=== PATIENT | male | born 1980 | race Caucasian/White ===

== ENCOUNTER 2021-11-15 20:35 | Emergency (ER) | payer OTHER ==
[2021-11-15 20:46] VITALS: RESP 18; TEMP 99.2
[2021-11-15] MEDS ORDERED: FAMOTIDINE 20 MG TAB PO STA (20:59)
[2021-11-15] MEDS ORDERED: predniSONE 50 MG TAB PO STA (20:59)
[2021-11-15] MEDS ORDERED: diphenhydrAMINE 50 MG/ML 1 ML VIAL IM STA (20:59)
--- NOTE | 2021-11-15 21:01 | ED ---
Skin/Abscess/FB HPI - General Chief complaint: Skin/Abscess/Foreign Body Stated complaint: Allergic reaction, Hives Time Seen by Provider: 11/15/21 20:51 Source: patient, RN notes reviewed Mode of arrival: ambulatory - History of Present Illness Initial comments: This is a pleasant 41-year-old male who presents to the emergency department complaining of urticaria which started last night. Patient has previously had a diagnosis of idiopathic urticaria, in fact, he has been evaluated by [facility] and had ALLERGY testing. Patient was unable to come up with a cau se. States this started last night and now his progress. Patient is getting urticaria on his extremities and his torso. Her itching. They're changing positions. No pustules. No vesicles. Patient has had no fever. No respiratory distress. No airway issues. No throat symptoms. No ear symptoms. No itchy eyes. No runny nose. No cough. Patient did take Benadryl earlier today. Patient denies any new medications. No known exposures. No new detergents. No new foods. Interestingly. Patient did move from the [facility] recently. No headache, no fever or chills, no changes in vision or hearing, no sore throat or difficulty with speech, no neck pain, no chest pain or shortness of breath, no abdominal pain, no nausea or vomiting, no changes in urination or bowel movements, no numbness or tingling, no extremity pain, Past medical, surgical, social, and family history reviewed. MD complaint: rash - Related Data Previous Rx's Medication Instructions Recorded Famotidine [Pepcid] 20 mg PO BID PRN #30 tablet 11/15/21 diphenhydrAMINE [Benadryl] 25 mg PO QID PRN #24 capsule 11/15/21 predniSONE 50 mg PO DAILY #5 tab 11/15/21 Allergies Allergy/AdvReac Type Severity Reaction Status Date / Time No Known Allergies Allergy Verified 11/15/21 20:44 Review of Systems ROS Statement: Those systems with pertinent positive or pertinent negative responses have been documented in the HPI. ROS Other: All systems not noted in ROS Statement are negative. Past Medical History Past Medical History: Asthma Additional Past Medical History / Comment(s): Hep C History of Any Multi-Drug Resistant Organisms: None Reported Past Surgical History: No Surgical Hx Reported Past Psychological History: Bipolar, PTSD Smoking Status: Current every day smoker Past Alcohol Use History: None Reported Past Drug Use History: None Reported General Exam - General Exam Comments Initial Comments: Patient does not appear to be ill or toxic. Vital signs reviewed. I did recheck the patient's heart rate. Heart rate by auscultation and radial pulses 84/m. No adventitious lung sounds. Cranial nerves II through XII grossly intact. Patient alert and oriented. General appearance: alert, in no apparent distress, in distress (Minimal) Head exam: Present: atraumatic, normocephalic, normal inspection Eye exam: Present: normal appearance, PERRL, EOMI. Absent: scleral icterus, conjunctival injection, periorbital swelling ENT exam: Present: normal exam, normal oropharynx, mucous membranes moist, TM's normal bilaterally, normal external ear exam. Absent: mucous membranes dry Neck exam: Present: normal inspection, full ROM. Absent: tenderness, meningismus, lymphadenopathy Respiratory exam: Present: normal lung sounds bilaterally. Absent: respiratory distress, wheezes, rales, rhonchi, stridor Cardiovascular Exam: Present: regular rate, normal rhythm, normal heart sounds. Absent: systolic murmur, diastolic murmur, rubs, gallop, clicks GI/Abdominal exam: Present: soft, normal bowel sounds. Absent: distended, tenderness, guarding, rebound, rigid Extremities exam: Present: normal inspection, full ROM, normal capillary refill. Absent: tenderness, pedal edema, joint swelling, calf tenderness Back exam: Present: normal inspection Neurological exam: Present: alert, oriented X3, CN II-XII intact Psychiatric exam: Present: normal affect, normal mood Skin exam: Present: warm, dry, intact, urticaria, other (Urticaria involving the proximal extremities and torso. No evidence of infectious process.). Absent: rash, cyanosis, diaphoretic, vesicles, petechiae, pallor, mottled, abrasion Course Vital Signs 11/15/21 11/15/21 20:40 21:15 Temperature 99.2 F Pulse Rate 114 H 99 Respiratory 18 18 Rate Blood Pressure 134/82 120/78 O2 Sat by Pulse 98 95 Oximetry Medical Decision Making - Medical Decision Making Patient presents with urticaria. No airway issues. No evidence of infectious process. No throat symptoms are upper airway symptoms. Started last night. Patient previously has had a diagnosis of idiopathic urticaria. We'll treat with antihistamines and corticosteroids. Patient was told to return to the ER for any signs or symptoms worsen. Told to return immediately if any other problems arise. All questions answered. Treatment plan discussed. Patient in agreement Every effort has been made to ensure accuracy of this dictation. However, due to the limitations of electronic medical records and dictation devices, errors in charting still occur. Bat Boy/Girl Dr. Lovelace Disposition Clinical Impression: Urticaria Disposition: HOME SELF-CARE Condition: Stable Instructions (If sedation given, give patient instructions): Urticaria (ED) Additional Instructions: Follow-up with your regular physician as directed. Return to the ER immediately if any symptoms worsen, new symptoms arise, or any other problems develop. Prescriptions: diphenhydrAMINE [Benadryl] 25 mg PO QID PRN #24 capsule PRN Reason: Itching Famotidine [Pepcid] 20 mg PO BID PRN #30 tablet PRN Reason: Itching predniSONE 50 mg PO DAILY #5 tab Is patient prescribed a controlled substance at d/c from ED?: No Referrals: Dallin Sanchez [STAFF PHYSICIAN] - 11/18/21 Time of Disposition: 21:01
[2021-11-15 21:16] VITALS: BP 120/78; PULSE 99
== END 2021-11-15 21:25 | disposition home or self-care (01) ==
LOC: EC 20:35
DX: L50.0 Allergic urticaria (principal); T78.40XA Allergy, unspecified, initial encounter; J45.909 Unspecified asthma, uncomplicated; F17.200 Nicotine dependence, unspecified, uncomplicated
CPT/HCPCS: 99282; 96372; J1200; J7512

== ENCOUNTER 2021-12-22 11:19 | Emergency (ER) | payer OTHER ==
[2021-12-22 11:27] VITALS: BP 119/62; PULSE 115; RESP 20; TEMP 98.2
[2021-12-22] MEDS ORDERED: methylPREDNISolone SOD SUCCI 125 MG/2 ML VIAL IM ONE (11:41)
[2021-12-22] MEDS ORDERED: FAMOTIDINE 20 MG TAB PO STA (11:41)
[2021-12-22] MEDS ORDERED: diphenhydrAMINE 50 MG/ML 1 ML VIAL IM STA (11:41)
--- NOTE | 2021-12-22 11:44 | ED ---
Skin/Abscess/FB HPI - General Chief complaint: Skin/Abscess/Foreign Body Stated complaint: hives Time Seen by Provider: 12/22/21 11:28 Source: patient, RN notes reviewed Mode of arrival: ambulatory Limitations: no limitations - History of Present Illness Initial comments: This is a 41-year-old male who presents to the emergency department for hives. Patient does have a diagnosis of idiopathic urticaria, and [facility] has not been able to determine a cause of these frequent breakouts. Symptoms are the same as they were 2 months ago when he was in the emergency department. They did resolve with the prescriptions he was given for prednisone, Benadryl, and Pepcid. These hives started last night, and he took one dose of Benadryl with no relief. Denies any new soaps or detergents. This is not the worst breakout he has ever had. He is requesting that he receive the first dose of steroids and Benadryl in the emergency department, as it treats his symptoms the fastest. Denies any difficulty breathing or chest pain. Denies any fevers, chills, sore throat, cough, dyspnea, chest pain, palpitations, abdominal pain, nausea, vomiting, diarrhea, back pain, or headaches. MD complaint: rash Onset/Timin -: days(s) Tetanus Up to Date: yes Location: generalized Treatments Prior to Arrival: Benadryl - Related Data Previous Rx's Medication Instructions Recorded Famotidine [Pepcid] 20 mg PO BID PRN #30 tablet 11/15/21 diphenhydrAMINE [Benadryl] 25 mg PO QID PRN #24 capsule 11/15/21 predniSONE 50 mg PO DAILY #5 tab 11/15/21 Famotidine [Pepcid] 20 mg PO BID 7 Days #14 tablet 12/22/21 diphenhydrAMINE [Benadryl] 25 mg PO QID PRN #20 capsule 12/22/21 predniSONE 50 mg PO Q24H 5 Days #5 tablet 12/22/21 Allergies Allergy/AdvReac Type Severity Reaction Status Date / Time No Known Allergies Allergy Verified 12/22/21 11:27 Review of Systems ROS Statement: Those systems with pertinent positive or pertinent negative responses have been documented in the HPI. ROS Other: All systems not noted in ROS Statement are negative. Past Medical History Past Medical History: Asthma Additional Past Medical History / Comment(s): Hep C History of Any Multi-Drug Resistant Organisms: None Reported Past Surgical History: No Surgical Hx Reported Past Psychological History: Bipolar, PTSD Smoking Status: Current every day smoker Past Alcohol Use History: None Reported Past Drug Use History: None Reported General Exam Limitations: no limitations General appearance: alert, in distress Head exam: Present: atraumatic, normocephalic, normal inspection Respiratory exam: Present: normal lung sounds bilaterally. Absent: respiratory distress, wheezes, rales, rhonchi, stridor Cardiovascular Exam: Present: normal rhythm, tachycardia, normal heart sounds. Absent: systolic murmur, diastolic murmur, rubs, gallop, clicks Neurological exam: Present: alert, oriented X3, CN II-XII intact Psychiatric exam: Present: normal affect, normal mood Skin exam: Present: other (Urticaria on the bilateral arms, legs, neck, and trunk. Positive dermatographism.) Course Vital Signs 12/22/21 11:25 Temperature 98.2 F Pulse Rate 115 H Respiratory 20 Rate Blood Pressure 119/62 O2 Sat by Pulse 96 Oximetry Medical Decision Making - Medical Decision Making This is a 41-year-old male who presents to the emergency department for urticaria. Solu-Medrol, Benadryl, and Pepcid were administered in the emergency department. He has no airway involvement or other findings to suggest an anaphylaxis. Prescriptions for prednisone, Benadryl, and Pepcid were provided. He'll follow up with his primary care provider to ensure resolution of the urticaria. Return precautions reviewed in depth, the patient is instructed to return to the emergency department with any new, worsening, or concerning symptoms. Patient verbalized understanding. This case was discussed in detail with the attending ED physician. Presentation, findings, and treatment plan discussed in detail as well. Disposition Clinical Impression: Urticaria Disposition: HOME SELF-CARE Instructions (If sedation given, give patient instructions): Urticaria (ED) Additional Instructions: Return to the emergency department with any new, worsening, or concerning symptoms. The prednisone daily for 5 days, take the famotidine twice daily for 7 days, and use the Benadryl up to every 6 hours as needed for the itching. Follow up with your primary care provider in 1-2 days. Prescriptions: diphenhydrAMINE [Benadryl] 25 mg PO QID PRN #20 capsule PRN Reason: Itching Famotidine [Pepcid] 20 mg PO BID 7 Days #14 tablet predniSONE 50 mg PO Q24H 5 Days #5 tablet Is patient prescribed a controlled substance at d/c from ED?: No Referrals: None,Stated [Primary Care Provider] - 1-2 days
== END 2021-12-22 12:23 | disposition home or self-care (01) ==
LOC: EC 11:19
DX: L50.9 Urticaria, unspecified (principal); J45.909 Unspecified asthma, uncomplicated; F17.200 Nicotine dependence, unspecified, uncomplicated; F31.9 Bipolar disorder, unspecified; F43.10 Post-traumatic stress disorder, unspecified; Z79.899 Other long term (current) drug therapy
CPT/HCPCS: 99283 ×2; 96372 ×3; J1200; J2930; 99282

== ENCOUNTER 2021-12-26 15:21 | Emergency (ER) | payer MEDICARE, OTHER ==
[2021-12-26 15:38] VITALS: TEMP 98.3
[2021-12-26] MEDS ORDERED: FAMOTIDINE 20 MG TAB PO STA (16:00)
[2021-12-26] MEDS ORDERED: methylPREDNISolone SOD SUCCI 125 MG/2 ML VIAL IM ONE (16:00)
[2021-12-26] MEDS ORDERED: diphenhydrAMINE 50 MG/ML 1 ML VIAL IM STA (16:00)
--- NOTE | 2021-12-26 16:12 | XR ---
EXAMINATION TYPE: XR chest 2V DATE OF EXAM: 12/26/2021 COMPARISON: None HISTORY: Cough and shortness of breath TECHNIQUE: Frontal and lateral views of the chest are obtained. FINDINGS: There is minimal interstitial scarring or atelectasis in the left lower lobe otherwise the lungs are clear. There is no pleural effusion or pneumothorax. The heart and pulmonary vasculature are normal. The osseous structures are intact IMPRESSION: No acute cardiopulmonary process.
--- NOTE | 2021-12-26 16:14 | ED ---
Allergic Reaction HPI - General Chief complaint: Allergic Reaction Stated complaint: Rash Time Seen by Provider: 12/26/21 15:55 Source: patient, family, RN notes reviewed Mode of arrival: ambulatory Limitations: no limitations - History of Present Illness Initial Comments: This is a 41 year old male who presents to the emergency department for hives. He was evaluated here on 12/22 for the same symptoms. Again, this patient does have chronic idiopathic urticaria which was diagnosed after extensive testing. He frequently acquires hives without any identifiable allergens. States that this completely resolved while taking the Prednisone, benadryl, and Pepcid. This morning, he woke up with hives again. Also reports a cough that has been present for the last week. States that when he gets sick, the hives are often worse. Denies any fevers, chills, sore throat, chest pain, palpitations, abdominal pain, nausea, vomiting, diarrhea, back pain, or headaches. MD Complaint: allergic reaction, hives Treatment Prior to Arrival: benadryl, steroids Previous Allergy History: prior ED visit(s) - Related Data Home Medications Medication Instructions Recorded Confirmed predniSONE 50 mg PO DAILY 12/26/21 12/26/21 Previous Rx's Medication Instructions Recorded Famotidine [Pepcid] 20 mg PO BID 7 Days #14 tablet 12/22/21 diphenhydrAMINE [Benadryl] 25 mg PO QID PRN #20 capsule 12/22/21 Amoxic-Pot Clav 875-125Mg 1 tab PO Q12HR 7 Days #14 tab 12/26/21 [Augmentin 875-125] Promethazine/Dextromethorphan 5 ml PO Q4-6H PRN #473 ml 12/26/21 [Promethazine-Dm Syrup] predniSONE 10 mg PO DIRECTED 15 Days #45 12/26/21 tab Allergies Allergy/AdvReac Type Severity Reaction Status Date / Time No Known Allergies Allergy Verified 12/26/21 17:15 Review of Systems ROS Statement: Those systems with pertinent positive or pertinent negative responses have been documented in the HPI. ROS Other: All systems not noted in ROS Statement are negative. Past Medical History Past Medical History: Asthma Additional Past Medical History / Comment(s): Hep C History of Any Multi-Drug Resistant Organisms: None Reported Past Surgical History: No Surgical Hx Reported Past Psychological History: Bipolar, PTSD Smoking Status: Current every day smoker Past Alcohol Use History: None Reported Past Drug Use History: None Reported General Exam Limitations: no limitations General appearance: alert, in no apparent distress Head exam: Present: atraumatic, normocephalic, normal inspection Respiratory exam: Present: wheezes Cardiovascular Exam: Present: regular rate, normal rhythm, normal heart sounds. Absent: systolic murmur, diastolic murmur, rubs, gallop, clicks Neurological exam: Present: alert, oriented X3, CN II-XII intact Psychiatric exam: Present: normal affect, normal mood Skin exam: Present: other (Urticaria on the bilateral upper and lower e xtremities, neck, and trunk. ) Course Vital Signs 12/26/21 12/26/21 15:35 17:37 Temperature 98.3 F Pulse Rate 93 78 Respiratory 22 20 Rate Blood Pressure 135/88 140/95 O2 Sat by Pulse 91 L 91 L Oximetry Medical Decision Making - Medical Decision Making This is a 41 year old male who presents to the emergency department for hives. Chest x-ray obtained, I did not identify any infiltrates or consolidations. He was given IM Solu-Medrol and Benadryl as well as a dose of Pepcid. COVID and influenza testing were negative. To avoid putting the patient on another five- day course of prednisone, 50 mg, will put him on a taper over 15 days. He will take the prednisone as follows: 5 tablets (50mg) for 3 days, 4 tablets (40mg) for 3 days, 3 tablets (30mg) for 3 days, 2 tablets (20mg) for 3 days, and then 1 tablet (10mg) for 3 days. Patient verbalized understanding in terms of the instructions. Also advised that he continue taking the Pepcid and Benadryl. Given that his cough has been present for at least one week now, will put him on a course of Augmentin due to a possible bacterial component. Augmentin prescribed to be taken for 7 days. Starter pack provided in the emergency department so that he may take his first dose tonight. Prescription for promethazine DM cough syrup provided. Advised he take his first dose at night until he knows how it affects him, as it may be sedating. Also discussed that the cough syrup does contain an antihistamine, and if he were to take this with the Benadryl, it can exacerbate the effects of sedation and dryness. The patient being sick is also likely contributing to the rebound of the urticaria and difficulty in his body fighting the reaction. He will follow up with his primary care provider to ensure that the coughing and urticaria both completely resolve. Patient's oxygen saturation did hover around 91%. He did not feel like he had difficulty breathing and was in no obvious respiratory distress. Advised the patient that it would be preferable to have him wait until his oxygen saturation improves, however the patient declined and requested discharge home. He was given very strict return parameters in that if he does have difficulty breathing he should return immediately. He was warned of the risks sh ould he have any respiratory compromise including , and the patient expressed understanding and is willing to accept these risks. Return precautions reviewed in depth, the patient is instructed to return to the emergency department with any new, worsening, or concerning symptoms. Patient verbalized understanding. This case was discussed in detail with the attending ED physician. Presentation, findings, and treatment plan discussed in detail as well. - Lab Data Lab Results 12/26/21 12/26/21 Range/Units 16:56 16:56 Coronavirus (PCR) Not Detected (Not Detectd) Influenza Type A RNA Not Detected (Not Detectd) Influenza Type B (PCR) Not Detected (Not Detectd) - Radiology Data Radiology results: report reviewed, image reviewed Disposition Clinical Impression: Urticaria, Bronchitis Disposition: HOME SELF-CARE Instructions (If sedation given, give patient instructions): Urticaria (ED), Acute Bronchitis (ED) Additional Instructions: Return to the emergency department with any new, worsening, or concerning symptoms. Follow up with your primary care provider in 1-2 days. Take the predn isone as follows: Take 5 tablets (50mg) for 3 days, 4 tablets (40mg) for 3 days, 3 tablets (30mg) for 3 days, 2 tablets (20mg) for 3 days, and then 1 tablet (10mg) for 3 days. Make sure that you're continuing to take the Benadryl and Pepcid. Take the antibiotic twice daily for 7 days. You were given a starter pack here so that you may take your first dose tonight. The cough syrup can be used every 4-6 hours as needed. Take your first dose at night until you know how it affects you, as it may be sedating. The cough syrup does contain an antihistamine, and if you are to take this with Benadryl, it may exacerbate the effects, such as drowsiness and dryness. Prescriptions: Amoxic-Pot Clav 875-125Mg [Augmentin 875-125] 1 tab PO Q12HR 7 Days #14 tab predniSONE 10 mg PO DIRECTED 15 Days #45 tab Promethazine/Dextromethorphan [Promethazine-Dm Syrup] 5 ml PO Q4-6H PRN #473 ml PRN Reason: Cough Is patient prescribed a controlled substance at d/c from ED?: No Referrals: None,Stated [Primary Care Provider] - 1-2 days
[2021-12-26] MEDS ORDERED: AMOXIC-POT CLAV 875MG STARTER PACK 2 TAB BTL PO STA (17:32)
[2021-12-26 17:37] VITALS: BP 140/95; PULSE 78; RESP 20
[2021-12-26] MEDS ORDERED: guaiFENesin 600 MG TABLET.ER PO ONE (18:30)
== END 2021-12-26 19:07 | disposition home or self-care (01) ==
LOC: EC 15:21
DX: L50.9 Urticaria, unspecified (principal); J40 Bronchitis, not specified as acute or chronic; F31.9 Bipolar disorder, unspecified; F17.200 Nicotine dependence, unspecified, uncomplicated; Z79.899 Other long term (current) drug therapy; Z20.822 Contact with and (suspected) exposure to COVID-19
CPT/HCPCS: 87502; 87635; 71046; 99283; 96372 ×2; J1200; J2930

== ENCOUNTER 2022-01-22 15:16 | Emergency (ER) | payer MEDICARE ==
[2022-01-22 15:20] VITALS: TEMP 97.6
[2022-01-22] MEDS ORDERED: methylPREDNISolone SOD SUCCI 125 MG/2 ML VIAL IM ONE (16:11)
[2022-01-22] MEDS ORDERED: FAMOTIDINE 20 MG TAB PO STA (16:11)
[2022-01-22] MEDS ORDERED: diphenhydrAMINE 50 MG/ML 1 ML VIAL IM STA (16:11)
--- NOTE | 2022-01-22 16:23 | ED ---
General Adult HPI - General Chief complaint: Skin/Abscess/Foreign Body Stated complaint: Hives Time Seen by Provider: 01/22/22 15:41 Source: patient, RN notes reviewed, old records reviewed Mode of arrival: ambulatory Limitations: no limitations - History of Present Illness Initial comments: Patient is a 41-year-old male with past medical history remarkable for recurrent urticaria, hepatitis C presents emergency Department complaining of another flare of his urticaria. States he gets this multiple times year for many years. Has received thorough workup at [facility] with no known cause. Was seen here last month for similar complaints. Unknown etiology. States usually steroids, famotidine, Benadryl improvement. Presents for treatment. States he noticed it this morning and it was typical, located over his shoulders, upper back, upper chest. Denies any shortness of breath, difficulty in swallowing. Denies any abdominal pain, nausea, vomiting. Has no other acute symptoms at this time. States it is itchy. It is not painful. No new medications or exposures. No known ALLERGIES. Presents for further evaluation at this time. - Related Data Home Medications Medication Instructions Recorded Confirmed predniSONE 50 mg PO DAILY 12/26/21 12/26/21 Previous Rx's Medication Instructions Recorded Famotidine [Pepcid] 20 mg PO BID 7 Days #14 tablet 12/22/21 diphenhydrAMINE [Benadryl] 25 mg PO QID PRN #20 capsule 12/22/21 Amoxic-Pot Clav 875-125Mg 1 tab PO Q12HR 7 Days #14 tab 12/26/21 [Augmentin 875-125] Promethazine/Dextromethorphan 5 ml PO Q4-6H PRN #473 ml 12/26/21 [Promethazine-Dm Syrup] predniSONE 10 mg PO DIRECTED 15 Days #45 12/26/21 tab Famotidine [Pepcid] 20 mg PO BID 7 Days #14 tablet 01/22/22 diphenhydrAMINE HCL [Benadryl 25 mg PO BID PRN 7 Days #14 tab 01/22/22 Allergy] predniSONE 10 mg PO DIRECTED #49 tab 01/22/22 Allergies Allergy/AdvReac Type Severity Reaction Status Date / Time No Known Allergies Allergy Verified 01/22/22 15:20 Review of Systems ROS Statement: Those systems with pertinent positive or pertinent negative responses have been documented in the HPI. Review of Systems: CONST: Denies fever EYES: Denies blurry vision ENT: Denies nasal congestion C/V: Denies Chest pain RESP: Denies shortness of breath GI: Denies abdominal pain : Denies dysuria SKIN: Endorses urticaria MSK: Denies joint pain. NEURO: Denies headache ROS Other: All systems not noted in ROS Statement are negative. Past Medical History Past Medical History: Asthma Additional Past Medical History / Comment(s): Hep C History of Any Multi-Drug Resistant Organisms: None Reported Past Surgical History: No Surgical Hx Reported Past Psychological History: Bipolar, PTSD Smoking Status: Current every day smoker Past Alcohol Use History: None Reported Past Drug Use History: None Reported General Exam - General Exam Comments Initial Comments: General: Appears in no acute distress. HEAD: Normal with no signs of head trauma. EYES: EOMI ENT: Hearing grossly intact, normal oropharynx. No stridor RESPIRATORY: Clear breath sounds bilaterally. No wheezes, rales, or rhonchi. No respiratory distress. No hypoxia. C/V: Regular rate and rhythm. Peripheral pulses 2+ intact throughout. ABD: Abd is soft, nontender, nondistended EXT: Normal range of motion, no obvious deformity SKIN: Urticarial rash located over the upper chest, shoulders, back. NEURO: Alert and oriented 4. Limitations: no limitations Course Vital Signs 01/22/22 15:18 Temperature 97.6 F Pulse Rate 92 Respiratory 20 Rate Blood Pressure 119/80 O2 Sat by Pulse 96 Oximetry Medical Decision Making - Medical Decision Making Based on the patient's presentation and physical exam, I'm concerned for his typical urticaria of unknown etiology. He has no new symptoms. Patient states this is typical for him and he is even able to tell me what cures it, including a steroid burst, Benadryl, famotidine. He'll be given IM Solu-Medrol, IM Benadryl, as well as by mouth famotidine here in the department as well as be prescribed prednisone taper, famotidine, Benadryl. He was in agreement this plan. Vital signs within acceptable limits. His no signs of anaphylaxis at this time. Strict return precautions were discussed. I discussed with him that he needs to establish primary care follow-up as well as see a specialist. He was in agreement this plan. I will provide the patient with a prescription for famotidine, prednisone, Benadryl. I instructed the patient to follow up with their PCP in the next 1-3 days. I provided contact information for follow up with PCP. I explained that the patient should return to the emergency department if they experience any worsening symptoms. Strict return precautions were discussed with the patient. The patient expressed understanding of these instructions. I answered all questions that the patient had. The patient was discharged home in good condition with their prescriptions and follow up information. Disposition Clinical Impression: Urticaria Disposition: HOME SELF-CARE Condition: Good Instructions (If sedation given, give patient instructions): Urticaria (ED) Prescriptions: diphenhydrAMINE HCL [Benadryl Allergy] 25 mg PO BID PRN 7 Days #14 tab PRN Reason: Allergic Reaction Famotidine [Pepcid] 20 mg PO BID 7 Days #14 tablet predniSONE 10 mg PO DIRECTED #49 tab Is patient prescribed a controlled substance at d/c from ED?: No Referrals: None,Stated [Primary Care Provider] - 1-2 days Dilma Mulligan MD [REFERRING] - 1-2 days Time of Disposition: 16:15
[2022-01-22 16:49] VITALS: BP 120/78; PULSE 88; RESP 16
== END 2022-01-22 16:49 | disposition home or self-care (01) ==
LOC: EC 15:16
DX: L50.9 Urticaria, unspecified (principal); J45.909 Unspecified asthma, uncomplicated; F31.9 Bipolar disorder, unspecified; F17.200 Nicotine dependence, unspecified, uncomplicated
CPT/HCPCS: 99283; 96372 ×2; J1200; J2930

== ENCOUNTER 2022-03-20 18:39 | Emergency (ER) | payer OTHER ==
[2022-03-20 18:48] VITALS: BP 126/80; PULSE 95; RESP 18; TEMP 98.1
[2022-03-20] MEDS ORDERED: diphenhydrAMINE 50 MG/ML 1 ML VIAL IM STA (19:32)
[2022-03-20] MEDS ORDERED: methylPREDNISolone SOD SUCCI 125 MG/2 ML VIAL IM ONE (19:32)
--- NOTE | 2022-03-20 19:43 | ED ---
Skin/Abscess/FB HPI - General Chief complaint: Skin/Abscess/Foreign Body Stated complaint: hives Time Seen by Provider: 03/20/22 19:20 Source: patient, RN notes reviewed, old records reviewed Limitations: no limitations - History of Present Illness Initial comments: 41-year-old well-appearing male presents to the emergency room with recurrent hives on bilateral forearms and lower abdomen that started again today. has been seen multiple times for this in the past. He has had follow-up with blood testing and ALLERGY testing with no known cause. usually gets a shot of Solu-Medrol and Benadryl and steroid prescription. Does not know the trigger. Denies any shortness of breath or chest pain. No tongue swelling. No nausea vomiting diarrhea. MD complaint: rash (Urticaria bilateral forearms today) Location: [facility] Severity scale (1-10): 0 Consistency: constant Improves with: none Associated symptoms: denies other symptoms Treatments Prior to Arrival: none - Related Data Home Medications Medication Instructions Recorded Confirmed Buprenorphine/Naloxone 8Mg/2Mg 1 film SL BID 03/20/22 03/20/22 [Suboxone 8-2Mg Film] Previous Rx's Medication Instructions Recorded diphenhydrAMINE [Benadryl] 25 mg PO QID PRN #20 capsule 12/22/21 predniSONE 10 mg PO DIRECTED #49 tab 03/20/22 Allergies Allergy/AdvReac Type Severity Reaction Status Date / Time No Known Allergies Allergy Verified 03/20/22 19:43 Review of Systems ROS Statement: Those systems with pertinent positive or pertinent negative responses have been documented in the HPI. ROS Other: All systems not noted in ROS Statement are negative. Past Medical History Past Medical History: Asthma Additional Past Medical History / Comment(s): Hep C History of Any Multi-Drug Resistant Organisms: None Reported Past Surgical History: No Surgical Hx Reported Past Psychological History: Bipolar, PTSD Smoking Status: Current every day smoker Past Alcohol Use History: None Reported Past Drug Use History: None Reported General Exam Limitations: no limitations General appearance: alert, in no apparent distress Head exam: Present: atraumatic Eye exam: Present: normal appearance. Absent: scleral icterus, conjunctival injection, periorbital swelling ENT exam: Present: normal exam, mucous membranes moist Neck exam: Present: full ROM. Absent: tenderness, meningismus, lymphadenopathy Respiratory exam: Present: normal lung sounds bilaterally. Absent: respiratory distress, accessory muscle use Cardiovascular Exam: Present: regular rate GI/Abdominal exam: Present: soft. Absent: distended, tenderness, rigid Extremities exam: Present: normal capillary refill. Absent: pedal edema Back exam: Present: normal inspection, full ROM. Absent: tenderness, CVA tenderness (R), CVA tenderness (L), rash noted Neurological exam: Present: alert, oriented X3, normal gait Psychiatric exam: Present: normal affect, normal mood Skin exam: Present: warm, dry, normal color, urticaria (Bilateral forearms, bilateral groin) Course Vital Signs 03/20/22 18:46 Temperature 98.1 F Pulse Rate 95 Respiratory 18 Rate Blood Pressure 126/80 O2 Sat by Pulse 97 Oximetry Medical Decision Making - Medical Decision Making Patient has been seen multiple times and had outpatient ALLERGY testing with no definitive cause for his urticaria. States Solu-Medrol and Benadryl provides relief along with a prescription for a steroid taper. Patient denies any shortness of breath, no nausea vomiting difficulty breathing or tongue swelling. He'll be prescribed prednisone taper and directed to follow up with his primary care doctor. He is agreeable to this plan of care. Lung sounds clear auscultation and vital signs stable. Case discussed with Dr. Perez Was pt. sent in by a medical professional or institution? @ -no Did you speak to anyone other than the patient for history? @ -no Did you review nursing and triage notes? @ -yes i agree Were old charts reviewed? @ -yes previous ER visits and medications Differential Diagnosis? @ -ALLERGIC reaction, anaphylaxis, angioedema, adverse drug reaction What testing was considered but not performed? (CT, X-rays, U/S, labs)? Why? @ none What meds were considered but not given? Why? @ -Epinephrine was considered however this is not an anaphylactic reaction, is a localized urticaria Did you discuss the management of the patient with other professionals? @ -no Did you reconcile home meds? @ -none Was smoking cessation discussed for >3mins.? @ -no Was critical care preformed (if so, how long)? @ -no Were there social determinants of health that impacted care today? How? (Homelessness, low income, unemployed, alcoholism, drug addiction, transportation, low edu. Level, literacy, decrease access to med. care, residential, rehab)? @ -none Was there de-escalation of care discussed even if they declined? (Discuss DNR or withdrawal of care, Hospice)? @ -no What co-morbidities impacted this encounter? (DM, HTN, Smoking, COPD, CAD, Cancer, CVA, Hep., AIDS, mental health diagnosis, sleep apnea, morbid obesity)? @ -Asthma Was patient admitted / discharged? @ -discharged Undiagnosed new problem with uncertain prognosis? @ -[none] Drug Therapy requiring intensive monitoring for toxicity (Heparin, Nitro, Insulin, Cardizem)? @ -no Were any procedures done? @ -no Diagnosis/symptom? @ -Urticaria Acute, or Chronic, or Acute on Chronic? @ -acute on chronic Uncomplicated (without systemic symptoms) or Complicated (systemic symptoms)? @ -Uncomplicated Side effects of treatment? @ -[none] Exacerbation, Progression, or Severe Exacerbation] @ -[no] Poses a threat to life or bodily function? @ -[no] Disposition Clinical Impression: Urticaria Disposition: HOME SELF-CARE Condition: Good Instructions (If sedation given, give patient instructions): Urticaria (ED) Additional Instructions: Take prednisone as prescribed. Follow-up with your primary care doctor. Return to the emergency room with any new or concerning symptoms Prescriptions: predniSONE 10 mg PO DIRECTED #49 tab Is patient prescribed a controlled substance at d/c from ED?: No Referrals: None,Stated [Primary Care Provider] - 1-2 days Time of Disposition: 19:40
== END 2022-03-20 19:54 | disposition home or self-care (01) ==
LOC: EC 18:39
DX: L50.9 Urticaria, unspecified (principal); J45.909 Unspecified asthma, uncomplicated; F31.9 Bipolar disorder, unspecified; F17.200 Nicotine dependence, unspecified, uncomplicated
CPT/HCPCS: 99283; 96372 ×2; J1200; J2930

== ENCOUNTER 2022-07-10 00:26 | Emergency (ER) | payer OTHER ==
[2022-07-10 00:36] VITALS: RESP 18; TEMP 98.5
[2022-07-10] MEDS ORDERED: methylPREDNISolone SOD SUCCI 125 MG/2 ML VIAL IV STA (01:04)
[2022-07-10] MEDS ORDERED: diphenhydrAMINE 50 MG CAP PO STA (01:04)
--- NOTE | 2022-07-10 01:05 | ED ---
General Adult HPI - General Chief complaint: Allergic Reaction Stated complaint: Hives, Allergic Reaction Time Seen by Provider: 07/10/22 00:57 Source: patient, RN notes reviewed Mode of arrival: ambulatory Limitations: no limitations - History of Present Illness Initial comments: 42-year-old male with a past medical history significant for hepatitis C presents to the emergency department with a chief complaint of ALLERGIC reaction. Patient reports generalized. That started at his left wrist and numbness all over his bilateral arms and torso that started at approximately 09 100 this morning. He denies any known new laundry soaps, detergents. He reports that this happens once or twice a year. She is unsure from what he is ALLERGIC to. Patient denies any fever, chills, cough, shortness of breath, dyspnea, - Related Data Home Medications Medication Instructions Recorded Confirmed Buprenorphine/Naloxone 8Mg/2Mg 1 film SL BID 03/20/22 03/20/22 [Suboxone 8-2Mg Film] Previous Rx's Medication Instructions Recorded diphenhydrAMINE [Benadryl] 25 mg PO QID PRN #20 capsule 12/22/21 predniSONE 10 mg PO DIRECTED #49 tab 03/20/22 diphenhydrAMINE [Benadryl] 50 mg PO QID PRN #20 capsule 07/10/22 predniSONE 50 mg PO DAILY #5 tab 07/10/22 Allergies Allergy/AdvReac Type Severity Reaction Status Date / Time No Known Allergies Allergy Verified 07/10/22 00:33 Review of Systems ROS Statement: Those systems with pertinent positive or pertinent negative responses have been documented in the HPI. ROS Other: All systems not noted in ROS Statement are negative. Past Medical History Past Medical History: Asthma Additional Past Medical History / Comment(s): Hep C History of Any Multi-Drug Resistant Organisms: None Reported Past Surgical History: No Surgical Hx Reported Past Psychological History: Bipolar, PTSD Smoking Status: Current every day smoker Past Alcohol Use History: None Reported Past Drug Use History: None Reported General Exam - General Exam Comments Initial Comments: General: Alert, in no acute distress Head: atraumatic normocephalic. Eyes PERRL, EOMI intact, mucous membranes moist Respiratory: Lungs clear to auscultation bilaterally Cardiovascular: Heart rate regular rate and rhythm Abdominal: Soft without guarding or rebound Extremities: Normal inspection with full range of motion and normal capillary refill Neuroogic: alert and oriented 3, CN II-XII intact, able to ambulate with steady gait Skin: warm dry and intact with normal color, diffuse hives to upper extremities generalized hive all of her upper body and bilateral extremity Limitations: no limitations General appearance: alert, in no apparent distress Head exam: Present: atraumatic, normocephalic, normal inspection Eye exam: Present: normal appearance, PERRL, EOMI. Absent: scleral icterus, conjunctival injection, periorbital swelling ENT exam: Present: normal exam, mucous membranes moist Neck exam: Present: normal inspection. Absent: tenderness, meningismus, lymphadenopathy Respiratory exam: Present: normal lung sounds bilaterally. Absent: respiratory distress, wheezes, rales, rhonchi, stridor Cardiovascular Exam: Present: regular rate, normal rhythm, normal heart sounds. Absent: systolic murmur, diastolic murmur, rubs, gallop, clicks GI/Abdominal exam: Present: soft, normal bowel sounds. Absent: distended, tenderness, guarding, rebound, rigid Extremities exam: Present: normal inspection, full ROM, normal capillary refill. Absent: tenderness, pedal edema, joint swelling, calf tenderness Back exam: Present: normal inspection Neurological exam: Present: alert, oriented X3, CN II-XII intact Psychiatric exam: Present: normal affect, normal mood Skin exam: Present: warm, dry, intact, normal color. Absent: rash Course Vital Signs 07/10/22 07/10/22 00:34 02:28 Temperature 98.5 F Pulse Rate 123 H 112 H Respiratory 18 18 Rate Blood Pressure 111/75 110/75 O2 Sat by Pulse 95 93 L Oximetry Medical Decision Making - Medical Decision Making Was pt. sent in by a medical professional or institution (, PA, CABLE TELEVISION INSTALLER, urgent care, hospital, or long term...) When possible be specific @ -[No] Did you speak to anyone other than the patient for history (EMS, parent, family, police, friend...)? What history was obtained from this source @ -[No] Did you review nursing and triage notes (agree or disagree)? Why? @ -[I reviewed and agree with nursing and triage notes] Were old charts reviewed (outside hosp., previous admission, EMS record, old EKG, old radiological studies, urgent care reports/EKG's, long term records)? Report findings @ -[No old charts were reviewed] Differential Diagnosis (chest pain, altered mental status, abdominal pain women, abdominal pain men, vaginal bleeding, weakness, fever, dyspnea, syncope, headache, dizziness, GI bleed, back pain, seizure, CVA, palpatations, mental health, musculoskeletal)? @ -[not applicable] EKG interpreted by me (3pts min.). @ -[As above] X-rays interpreted by me (1pt min.). @ -[None done] CT interpreted by me (1pt min.). @ -[None done] U/S interpreted by me (1pt. min.). @ -[None done] What testing was considered but not performed or refused? (CT, X-rays, U/S, labs)? Why? @ -[None] What meds were considered but not given or refused? Why? @ -[None] Did you discuss the management of the patient with other professionals (professionals i.e. , PA, CABLE TELEVISION INSTALLER, lab, RT, psych nurse, social problems specialist, blast setter, teacher, police patrol officer, case management assistant)? Give summary @ -[No] Was smoking cessation discussed for >3mins.? @ -[No] Was critical care preformed (if so, how long)? @ -[No] Were there social determinants of health that impacted care today? How? (Home lessness, low income, unemployed, alcoholism, drug addiction, transportation, low edu. Level, literacy, decrease access to med. care, senior care, rehab)? @ -[No] Was there de-escalation of care discussed even if they declined (Discuss DNR or withdrawal of care, Hospice)? DNR status @ -[No] What co-morbidities impacted this encounter? (DM, HTN, Smoking, COPD, CAD, Cancer, CVA, ARF, Chemo, Hep., AIDS, mental health diagnosis, sleep apnea, morbid obesity)? @ -[None] Was patient admitted / discharged? Hospital course, mention meds given and route, prescriptions, significant lab abnormalities, going to OR and other pertinent info. @ -Discharged. This is a 42-year-old male presents to the emergency department with hives. Patient had a thorough history and physical exam performed on the ED heart rate regular rate and rhythm, lungs clear to auscultation bilaterally no respiratory distress noted. There is reveals a/hives all over the patient's torso and bilateral upper extremities. Patient was given Solu-Medrol and Benadryl and hematocrit relief. Return precautions were discussed at length. Patient discharged in stable condition. Case discussed with CAL Juárez who agrees with plan of care Undiagnosed new problem with uncertain prognosis? @ -[No] Drug Therapy requiring intensive monitoring for toxicity (Heparin, Nitro, Insulin, Cardizem)? @ -[No] Were any procedures done? @ -[No] Diagnosis/symptom? @ -Rash - Allergic reaction Acute, or Chronic, or Acute on Chronic? @ -Acute Uncomplicated (without systemic symptoms) or Complicated (systemic symptoms)? @ -Uncomplicated Side effects of treatment? @ -[No] Exacerbation, Progression, or Severe Exacerbation? @ -[No] Poses a threat to life or bodily function? How? (Chest pain, USA, MA, pneumonia, PE, COPD, DKA, ARF, appy, cholecystitis, CVA, Diverticulitis, Homicidal, Suicidal, threat to staff... and all critical care pts) @ -low likelihood Disposition Clinical Impression: Allergic reaction, Urticaria Disposition: HOME SELF-CARE Condition: Stable Instructions (If sedation given, give patient instructions): Urticaria (ED) Additional Instructions: These return to the nearest emergency department if symptoms worsen or persist Prescriptions: diphenhydrAMINE [Benadryl] 50 mg PO QID PRN #20 capsule PRN Reason: Rash predniSONE 50 mg PO DAILY #5 tab Is patient prescribed a controlled substance at d/c from ED?: No Referrals: None,Stated [Primary Care Provider] - 1-2 days Time of Disposition: 01:04
[2022-07-10] MEDS ORDERED: methylPREDNISolone SOD SUCCI 125 MG/2 ML VIAL IM ONE (01:27)
[2022-07-10 02:30] VITALS: BP 110/75; PULSE 112
== END 2022-07-10 02:30 | disposition home or self-care (01) ==
LOC: EC 00:26
DX: T78.40XA Allergy, unspecified, initial encounter (principal); L50.0 Allergic urticaria; J45.909 Unspecified asthma, uncomplicated; F17.200 Nicotine dependence, unspecified, uncomplicated
CPT/HCPCS: 99283; 96372; J2930

== ENCOUNTER 2022-08-01 17:44 | Emergency (ER) | payer OTHER ==
[2022-08-01] MEDS ORDERED: DIPH,PERTUS(ACELL)TETVAC-LF 0.5 ML VIAL IM ONE (18:01)
[2022-08-01] MEDS ORDERED: LIDOCAINE/EPINEPHR/TETRACAINE 5 ML BOTTLE TOPICAL ONE (18:03)
--- NOTE | 2022-08-01 18:25 | ED ---
General Adult HPI - General Chief complaint: Wound/Laceration Stated complaint: laceration to head Time Seen by Provider: 08/01/22 17:56 Source: patient Mode of arrival: ambulatory Limitations: no limitations - History of Present Illness Initial comments: 42-year-old male presenting to the ED with a chief complaint of laceration. She states that he accidentally walked into an overhead. Now notes a laceration to the left upper scalp. Tetanus is not up-to-date. Of note patient has hepatitis C. Denies nausea or vomiting. Per acting appropriately. No LOC at this time. Denies neck pain. No other complaints. - Related Data Home Medications Medication Instructions Recorded Confirmed Buprenorphine/Naloxone 8Mg/2Mg 1 film SL BID 03/20/22 03/20/22 [Suboxone 8-2Mg Film] Previous Rx's Medication Instructions Recorded diphenhydrAMINE [Benadryl] 25 mg PO QID PRN #20 capsule 12/22/21 predniSONE 10 mg PO DIRECTED #49 tab 03/20/22 diphenhydrAMINE [Benadryl] 50 mg PO QID PRN #20 capsule 07/10/22 predniSONE 50 mg PO DAILY #5 tab 07/10/22 Allergies Allergy/AdvReac Type Severity Reaction Status Date / Time No Known Allergies Allergy Verified 08/01/22 17:54 Review of Systems ROS Statement: Those systems with pertinent positive or pertinent negative responses have been documented in the HPI. ROS Other: All systems not noted in ROS Statement are negative. Past Medical History Past Medical History: Asthma Additional Past Medical History / Comment(s): Hep C History of Any Multi-Drug Resistant Organisms: None Reported Past Surgical History: No Surgical Hx Reported Past Psychological History: Bipolar, PTSD Smoking Status: Current every day smoker Past Alcohol Use History: None Reported Past Drug Use History: None Reported General Exam Limitations: no limitations General appearance: alert Head exam: Present: normocephalic, other (2 and a half cm linear laceration to the scalp following the epidermis. No foreign bodies.) Eye exam: Present: normal appearance Neck exam: Present: other (Midline cervical spinal tenderness to palpation ) Respiratory exam: Present: normal lung sounds bilaterally Cardiovascular Exam: Present: regular rate Back exam: Present: other (No midline thoracic or lumbar spinal tenderness to palpation.) Neurological exam: Present: alert, oriented X3 Skin exam: Present: warm, dry Course Vital Signs 08/01/22 17:52 Temperature 98.2 F Pulse Rate 61 Respiratory 20 Rate Blood Pressure 117/70 O2 Sat by Pulse 98 Oximetry Procedures - Laceration Laceration #1 Site: scalp Description: linear Depth: simple, single layer Sedation/Analgesia: none Amount (mls): 1,000 Pre-repair: wound explored Type of Sutures: other Size of Sutures: other Number of Sutures: 1 (1 micromend ) Patient Tolerated Procedure: well, no complications Medical Decision Making - Medical Decision Making Was pt. sent in by a medical professional or institution (, MAKENZIE, MORTGAGE ACCOUNTING CLERK, urgent care, hospital, or long term...) When possible be specific @ -No Did you speak to anyone other than the patient for history (EMS, parent, family, police, friend...)? What history was obtained from this source @ -No Did you review nursing and triage notes (agree or disagree)? Why? @ -I reviewed and agree with nursing and triage notes Were old charts reviewed (outside hosp., previous admission, EMS record, old EKG, old radiological studies, urgent care reports/EKG's, long term records)? Report findings @ -No old charts were reviewed Differential Diagnosis (chest pain, altered mental status, abdominal pain women, abdominal pain men, vaginal bleeding, weakness, fever, dyspnea, syncope, headache, dizziness, GI bleed, back pain, seizure, CVA, palpatations, mental health, musculoskeletal)? @ -Acute head injury, acute fracture, is not meant to be an all-inclusive list. EKG interpreted by me (3pts min.). @ -None X-rays interpreted by me (1pt min.). @ -None done CT interpreted by me (1pt min.). @ -None done U/S interpreted by me (1pt. min.). @ -None done What testing was considered but not performed or refused? (CT, X-rays, U/S, labs)? Why? @ -None What meds were considered but not given or refused? Why? @ -None Did you discuss the management of the patient with other professionals (professionals i.e. MAKENZIE Staples, MORTGAGE ACCOUNTING CLERK, lab, RT, psych nurse, psychologist social, well services operator, teacher, ecological technical officer, lining caser)? Give summary @ -No Was smoking cessation discussed for >3mins.? @ -No Was critical care preformed (if so, how long)? @ -No Were there social determinants of health that impacted care today? How? (Homelessness, low income, unemployed, alcoholism, drug addiction, transportation, low edu. Level, literacy, decrease access to med. care, fdc, rehab)? @ -No Was there de-escalation of care discussed even if they declined (Discuss DNR or withdrawal of care, Hospice)? DNR status @ -No What co-morbidities impacted this encounter? (DM, HTN, Smoking, COPD, CAD, Cancer, CVA, ARF, Chemo, Hep., AIDS, mental health diagnosis, sleep apnea, morbid obesity)? @ -None Was patient admitted / discharged? Hospital course, mention meds given and route, prescriptions, significant lab abnormalities, going to OR and other pertinent info. @ -Discharged. Patient had tetanus updated. Laceration repaired please see procedure note for further details. Discharged in stable condition. Undiagnosed new problem with uncertain prognosis? @ -No Drug Therapy requiring intensive monitoring for toxicity (Heparin, Nitro, Insulin, Cardizem)? @ -No Were any procedures done? @ -Yes, please see procedure note further details Diagnosis/symptom? @ -Laceration to the scalp Acute, or Chronic, or Acute on Chronic? @ -Acute Uncomplicated (without systemic symptoms) or Complicated (systemic symptoms)? @ -Uncomplicated Side effects of treatment? @ -No Exacerbation, Progression, or Severe Exacerbation? @ -No Poses a threat to life or bodily function? How? (Chest pain, USA, MA, pneumonia, PE, COPD, DKA, ARF, appy, cholecystitis, CVA, Diverticulitis, Homicidal, Suicidal, threat to staff... and all critical care pts) @ -No Disposition Clinical Impression: Laceration Disposition: HOME SELF-CARE Condition: Good Additional Instructions: Please return to the Emergency Department if symptoms worsen or any other concerns. Wound care as discussed. Monitor for signs of infection Is patient prescribed a controlled substance at d/c from ED?: No Referrals: None,Stated [Primary Care Provider] - 1-2 days Time of Disposition: 18:23
[2022-08-01 18:53] VITALS: BP 126/79; PULSE 82; RESP 16; TEMP 97.9
== END 2022-08-01 19:09 | disposition home or self-care (01) ==
LOC: EC 17:44
DX: S01.01XA Laceration without foreign body of scalp, initial encounter (principal); J45.909 Unspecified asthma, uncomplicated; F31.9 Bipolar disorder, unspecified; F17.200 Nicotine dependence, unspecified, uncomplicated; Z23 Encounter for immunization; W22.09XA Striking against other stationary object, initial encounter
CPT/HCPCS: 12001; 90471; 90715; 99282

== ENCOUNTER 2022-12-29 08:46 | Emergency (ER) | payer OTHER ==
[2022-12-29] MEDS ORDERED: ACETAMINOPHEN TAB 325 MG TAB PO STA (10:15)
[2022-12-29] MEDS ORDERED: methylPREDNISolone SOD SUCCIN 500 MG in SODIUM CHLORIDE 0.9% 100 ML IVPB STA (10:15)
[2022-12-29] MEDS ORDERED: FAMOTIDINE 20 MG/2 ML VIAL IV STA (10:15)
[2022-12-29] MEDS ORDERED: diphenhydrAMINE 50 MG/ML 1 ML VIAL IVP STA (10:15)
[2022-12-29] MEDS ORDERED: SODIUM CHLORIDE 0.9% 1,000 ML IV ONE (10:29)
--- NOTE | 2022-12-29 10:32 | ED ---
Allergic Reaction HPI - General Chief complaint: Allergic Reaction Stated complaint: allergic reaction Time Seen by Provider: 12/29/22 10:01 Source: patient, family, RN notes reviewed Mode of arrival: ambulatory Limitations: no limitations - History of Present Illness Initial Comments: Patient is a 42-year-old male presented ER with chief complaint of generalized hives. Patient states he woke up this morning with hives covering his arms legs and back. Patient reports they are very itchy and uncomfortable. Patient states this has happened in the past and was treated with medication. There is no known triggers. Patient denies any new foods, laundry soaps or body soaps, lotions, or perfumes. He has no known allergies. Patient denies any chest pain, shortness of breath, wheezing, abdominal pain. - Related Data Home Medications Medication Instructions Recorded Confirmed Buprenorphine/Naloxone 8Mg/2Mg 1 film SL BID 03/20/22 03/20/22 [Suboxone 8-2Mg Film] Previous Rx's Medication Instructions Recorded diphenhydrAMINE [Benadryl] 25 mg PO QID PRN #20 capsule 12/22/21 predniSONE 10 mg PO DIRECTED #49 tab 03/20/22 diphenhydrAMINE [Benadryl] 50 mg PO QID PRN #20 capsule 07/10/22 predniSONE 50 mg PO DAILY #5 tab 07/10/22 predniSONE See Taper PO DIRECTED #20 tab 12/29/22 Allergies Allergy/AdvReac Type Severity Reaction Status Date / Time No Known Allergies Allergy Verified 12/29/22 08:55 Review of Systems ROS Statement: Those systems with pertinent positive or pertinent negative responses have been documented in the HPI. ROS Other: All systems not noted in ROS Statement are negative. Past Medical History Past Medical History: Asthma Additional Past Medical History / Comment(s): Hep C History of Any Multi-Drug Resistant Organisms: None Reported Past Surgical History: No Surgical Hx Reported Past Psychological History: Bipolar, PTSD Smoking Status: Current every day smoker Past Alcohol Use History: None Reported Past Drug Use History: None Reported General Exam Limitations: no limitations ENT exam: Present: normal exam, normal oropharynx Neck exam: Present: normal inspection. Absent: tenderness, meningismus, lymphadenopathy Respiratory exam: Present: normal lung sounds bilaterally. Absent: respiratory distress, wheezes, rales, rhonchi, stridor Cardiovascular Exam: Present: normal rhythm, tachycardia Neurological exam: Present: alert, oriented X3, CN II-XII intact Skin exam: Present: other (Hives noted on bilateral arms and legs. There are also noted on his neck and back.) Course Vital Signs 12/29/22 12/29/22 12/29/22 08:52 10:03 10:04 Temperature 98.8 F 100.4 F H Pulse Rate 116 H 103 H Respiratory 18 17 20 Rate Blood Pressure 116/85 101/84 O2 Sat by Pulse 98 96 Oximetry 12/29/22 12/29/22 10:48 11:26 Temperature 99.9 F H 99.2 F Pulse Rate 87 Respiratory 16 Rate Blood Pressure 114/87 O2 Sat by Pulse 95 Oximetry Medical Decision Making - Medical Decision Making Was pt. sent in by a medical professional or institution (, PA, TRANSMISSION CALIBRATION ENGINEER, urgent care, hospital, or long-term...) When possible be specific @ -No Did you speak to anyone other than the patient for history (EMS, parent, family, police, friend...)? What history was obtained from this source @ -Family Did you review nursing and triage notes (agree or disagree)? Why? @ -I reviewed and agree with nursing and triage notes Were old charts reviewed (outside hosp., previous admission, EMS record, old EKG, old radiological studies, urgent care reports/EKG's, long-term records)? Report findings @ -No old charts were reviewed Differential Diagnosis (chest pain, altered mental status, abdominal pain women, abdominal pain men, vaginal bleeding, weakness, fever, dyspnea, syncope, headache, dizziness, GI bleed, back pain, seizure, CVA, palpatations, mental health, musculoskeletal)? @ -[Anaphylaxis, ALLERGIC reaction, uticaria EKG interpreted by me (3pts min.). @ -None X-rays interpreted by me (1pt min.). @ -None done CT interpreted by me (1pt min.). @ -None done U/S interpreted by me (1pt. min.). @ -None done What testing was considered but not performed or refused? (CT, X-rays, U/S, labs)? Why? @ -None What meds were considered but not given or refused? Why? @ -None Did you discuss the management of the patient with other professionals (professionals i.e. , PA, TRANSMISSION CALIBRATION ENGINEER, lab, RT, psych nurse, hospital social worker, art gallery director, teacher, command center officer, pillowcase sewer)? Give summary @ -No Was smoking cessation discussed for >3mins.? @ -No Was critical care preformed (if so, how long)? @ -No Were there social determinants of health that impacted care today? How? (Homelessness, low income, unemployed, alcoholism, drug addiction, transportat ion, low edu. Level, literacy, decrease access to med. care, senior care, rehab)? @ -No Was there de-escalation of care discussed even if they declined (Discuss DNR or withdrawal of care, Hospice)? DNR status @ -No What co-morbidities impacted this encounter? (DM, HTN, Smoking, COPD, CAD, Cancer, CVA, ARF, Chemo, Hep., AIDS, mental health diagnosis, sleep apnea, morbid obesity)? @ -None Was patient admitted / discharged? Hospital course, mention meds given and route, prescriptions, significant lab abnormalities, going to OR and other pertinent info. @ -Discharged. Upon initial examination patient had generalized hives on bilateral arms legs and back. Patient received IV fluids, Benadryl, Solu- Medrol, Pepcid. Patient also received by mouth Tylenol. Upon reevaluation hives have resolved. Patient is eager for discharge. Patient will be discharged home with a prednisone prescription. Patient advised to take by mouth Benadryl every 6 hours. Patient advised to return to ER if symptoms return or worsen. Patient expressed understanding and agreement with care plan. Patient will be discharged home in stable condition. Undiagnosed new problem with uncertain prognosis? @ -No Drug Therapy requiring intensive monitoring for toxicity (Heparin, Nitro, Insulin, Cardizem)? @ -No Were any procedures done? @ -No Diagnosis/symptom? @ -Uticaria Acute, or Chronic, or Acute on Chronic? @ -Acute Uncomplicated (without systemic symptoms) or Complicated (systemic symptoms)? @ -Uncomplicated Side effects of treatment? @ -No Exacerbation, Progression, or Severe Exacerbation? @ -No Poses a threat to life or bodily function? How? (Chest pain, USA, [place], pneumonia, PE, COPD, DKA, ARF, appy, cholecystitis, CVA, Diverticulitis, Homicidal, Suicid al, threat to staff... and all critical care pts) @ -No Disposition Clinical Impression: Urticaria Disposition: HOME SELF-CARE Condition: Stable Additional Instructions: Please return to the Emergency Department if symptoms worsen or any other concerns. Please take by mouth over the counter Benadryl every 6 hours and prescribed prednisone for the next few days. Please return if symptoms worsen or return. Prescriptions: predniSONE See Taper PO DIRECTED #20 tab Is patient prescribed a controlled substance at d/c from ED?: No Referrals: None,Stated [Primary Care Provider] - 1-2 days Time of Disposition: 12:56
[2022-12-29 11:08] VITALS: RESP 16
[2022-12-29 11:34] VITALS: TEMP 99.2
[2022-12-29 13:36] VITALS: BP 100/57; PULSE 75
== END 2022-12-29 13:19 | disposition home or self-care (01) ==
LOC: EC 08:46
DX: L50.9 Urticaria, unspecified (principal); J45.909 Unspecified asthma, uncomplicated; F17.210 Nicotine dependence, cigarettes, uncomplicated; Z86.59 Personal history of other mental and behavioral disorders
CPT/HCPCS: 99283; 96365; 96366; 96375 ×2; J1200; J2930; J3490

== ENCOUNTER 2023-10-09 21:31 | Emergency (ER) | payer OTHER ==
[2023-10-10] MEDS ORDERED: methylPREDNISolone SOD SUCCI 125 MG/2 ML VIAL ONE (00:38)
[2023-10-10] MEDS ORDERED: diphenhydrAMINE 50 MG/ML 1 ML VIAL ONE (00:39)
== END 2023-10-10 00:55 | disposition home or self-care (01) ==
LOC: EC 21:31
CPT/HCPCS: 99283